=== PATIENT | female | born 1975 | race Caucasian/White ===

== ENCOUNTER 2020-01-02 14:55 | Outpatient (CLI) | payer BC ==
--- NOTE | 2020-01-02 15:28 | RAD ---
TWO VIEW ABDOMEN SUPINE AND UPRIGHT VIEWS: Indications: Crohn's disease. Abdominal pain. Dysuria. FINDINGS: Scattered gas in the colon. No significant small bowel gas. No free air. No mass effect. No abnormal calcification. There are phlebolith type calcifications in the pelvis. Osseous structures are unremar kable. IMPRESSION: Unremarkable bowel gas pattern. POS: [facility]
== END 2020-01-02 14:56 | disposition home or self-care (01) ==
LOC: BICRAD 14:55
PROVIDERS: ATTEND Physician Assistant Medical
DX: K50.90 Crohn's disease, unspecified, without complications (principal); R30.0 Dysuria; K21.9 Gastro-esophageal reflux disease without esophagitis; M06.9 Rheumatoid arthritis, unspecified; M10.9 Gout, unspecified
CPT/HCPCS: 36415; 74019; 80053; 80074; 81001; 82306; 82607; 82746; 85025; 86140; 86480; 86706

== ENCOUNTER 2020-02-23 10:51 | Outpatient (CLI) | payer BC | END 2020-02-23 10:52 | disposition home or self-care (01) | LOC: CTENTCT 10:51 | PROVIDERS: ATTEND Otolaryngology Plastic Surgery within the Head & Neck | DX: J34.2 Deviated nasal septum (principal) | CPT/HCPCS: 70486 ==

== ENCOUNTER 2024-08-19 09:50 | Inpatient (IN) | payer OTHER ==
[2024-08-19 10:55] VITALS: BMI 25.8
[2024-08-19] MEDS ORDERED: hydrALAZINE 20 MG/ML VIAL SLOW IVP PRN (11:13)
[2024-08-19] MEDS: Morphine 4 MG/ML VIAL SLOW IVP PRN (12:04)
[2024-08-19] MEDS: Lactated Ringer's 1,000 ML IV SCH ×2 (12:05)
[2024-08-19] MEDS ORDERED: LevoFLOXacin 750 mg/D5W 750 MG in Premix 1 BAG IVPB SCH (12:15)
[2024-08-19] MEDS: Scopolamine 1 mg/72 hour Patch TD SCH (12:55)
[2024-08-19] MEDS: Ondansetron PF 4 MG/2 ML Vial IVP PRN (12:57)
[2024-08-19] MEDS: metroNIDAZOLE 500 MG in Premix 1 BAG IVPB SCH (12:57)
[2024-08-19] MEDS ORDERED: METHYLPREDNISOLONE SOD SUCC IVPB SCH (13:30)
[2024-08-19] MEDS ORDERED: SODIUM CHLORIDE 0.9% IVPB SCH (13:30)
[2024-08-19] MEDS: Piperacillin/Tazobactam 3.375 GM in Sodium Chloride 0.9% 100 ML IVPB SCH ×2 (14:09→17:07)
[2024-08-19] MEDS: methylPREDNISolone Sod Succ 40 MG VIAL IVP SCH (14:09)
[2024-08-19 17:03] LABS: Hep C IgG Ab NONREACTIVE S/CO (NonReactive); Hep C Index 0.19 S/CO (0-0.79)
[2024-08-19] MEDS: Mometasone 200 MCG/Formoterol 5 MCG 120 PUFF INHALER INH SCH (18:48)
[2024-08-19] MEDS: Pantoprazole 40 MG VIAL IVP SCH (19:50)
[2024-08-19] MEDS: Enoxaparin 40 MG (0.4 mL) SYRINGE SC SCH (19:56)
[2024-08-19] MEDS: busPIRone HCl 10 MG TAB PO SCH (19:56)
[2024-08-20] MEDS: Morphine 4 MG/ML VIAL SLOW IVP SCH ×2 (01:51→05:44)
[2024-08-20 05:31] LABS: #Basophils Less than 0.03 10x3/uL (0.0-0.2); #Eosinophils Less than 0.03 10x3/uL (0.0-0.7); %Basophils 0.1 % (0.0-1.0); %Lymphocytes 11.2 % (21.0-51.0); %Monocytes 4.1 % (0.0-10.0); %Neutrophils 84.3 % (42.0-75.0); Hematocrit 39.7 % (36.0-47.0); Hemoglobin 12.7 g/dL (12.0-16.0); Mean Corpuscular Hemoglobin 29.1 pg (27.0-31.0); Mean Corpuscular Volume 90.8 fL (78.0-98.0); Mean Platelet Volume 10.7 fL (7.4-10.4); Platelet Count 268 10x3/uL (130-400); RBC Distribution Width 14.7 % (11.5-14.5); Red Blood Cell (RBC) Count 4.37 mill/uL (4.20-5.40)
[2024-08-20 05:47] LABS: ALT (SGPT) 15 U/L (8-55); AST (SGOT) 13 U/L (5-34); Albumin 2.8 g/dL (3.5-5.0); Alkaline Phosphatase 74 U/L (40-110); Anion Gap 11 mmol/L (10-20); BUN (Urea Nitrogen) 13 mg/dL (7.0-18.7); Bilirubin, Total 0.7 mg/dL (0.2-1.2); Calc. Creatinine Clearance 91 mL/min (70-130); Calcium 8.8 mg/dL (7.8-10.44); Carbon Dioxide 29 mmol/L (22-29); Chloride 101 mmol/L (98-107); Estimated GFR 78; Globulin 3.1 g/dL (2.4-3.5); Glucose 123 mg/dL (70-105); Potassium 4.7 mmol/L (3.5-5.1); Protein, Total 5.9 g/dL (6.0-8.3); Sodium 136 mmol/L (136-145)
[2024-08-20 06:09] LABS: HBSAB Concentration Less than 8.00 mIU/mL; Hep B Core Total Ab NONREACTIVE (NonReactive); Hep B Core Total Index 0.11 S/CO (0-0.79); Hep B Surf AB NONREACTIVE (NonReactive); Hep B Surf Ag NONREACTIVE S/CO (NonReactive)
[2024-08-20] MEDS: Metoprolol Tartrate 50 MG TAB PO SCH (08:44)
[2024-08-20] MEDS: Acetaminophen 500 MG TAB PO SCH (08:45)
[2024-08-20] MEDS: Morphine 4 MG/ML VIAL SLOW IVP PRN (08:48)
[2024-08-20] MEDS ORDERED: Albuterol 2.5 MG (3 mL) NEB NEB PRN (11:37)
[2024-08-20] MEDS: Ketorolac Tromethamine 30 MG (1 mL) VIAL IVP SCH (12:00)
[2024-08-20] MEDS: Dextrose 5 %-0.45 % NaCl 1,000 ML IV SCH (13:16)
[2024-08-21 05:37] LABS: #Basophils Less than 0.03 10x3/uL (0.0-0.2); #Eosinophils Less than 0.03 10x3/uL (0.0-0.7); %Basophils 0.1 % (0.0-1.0); %Monocytes 3.5 % (0.0-10.0); %Neutrophils 88.1 % (42.0-75.0); Hematocrit 41.7 % (36.0-47.0); Hemoglobin 13.2 g/dL (12.0-16.0); Mean Corpuscular HGB CONC 31.7 g/dL (32.0-36.0); Mean Corpuscular Hemoglobin 29.1 pg (27.0-31.0); Mean Corpuscular Volume 91.9 fL (78.0-98.0); Mean Platelet Volume 11.1 fL (7.4-10.4); Platelet Count 284 10x3/uL (130-400); RBC Distribution Width 14.5 % (11.5-14.5); Red Blood Cell (RBC) Count 4.54 mill/uL (4.20-5.40)
[2024-08-21 05:54] LABS: Anion Gap 11 mmol/L (10-20); BUN (Urea Nitrogen) 11 mg/dL (7.0-18.7); Calc. Creatinine Clearance 84 mL/min (70-130); Carbon Dioxide 27 mmol/L (22-29); Chloride 103 mmol/L (98-107); Estimated GFR 71; Glucose 124 mg/dL (70-105); Magnesium 2.4 mg/dL (1.6-2.6); Sodium 136 mmol/L (136-145)
[2024-08-22] MEDS ORDERED: Acetaminophen 500 MG TAB PO PRN (09:08)
[2024-08-22 14:51] VITALS: BP 124/72; TEMP 98.4
[2024-08-23] MEDS ORDERED: predniSONE 20 MG TAB PO SCH (08:00)
[2024-08-23 20:08] LABS: QuantiFERON-TB Gold Plus Negative (Negative)
== END 2024-08-22 14:45 | disposition home or self-care (01) | DRG 386 ==
LOC: SURG B 10:29
PROVIDERS: ADMIT Specialist; ATTEND Specialist
DX: K50.912 Crohn's disease, unspecified, with intestinal obstruction (principal); N17.9 Acute kidney failure, unspecified; Z79.899 Other long term (current) drug therapy; M06.9 Rheumatoid arthritis, unspecified; Z98.890 Other specified postprocedural states; I10 Essential (primary) hypertension; E86.9 Volume depletion, unspecified
CPT/HCPCS: 36415; 71046; 80048; 80053; 83735; 85025; 86480; 86704; 86706; 86803; 87340; 94664; 94760; J1885; J2272; J2405; J2470; J2543; J2919; J7042; J7120

== ENCOUNTER 2024-09-16 09:17 | Outpatient (CLI) | payer OTHER | END 2024-09-16 09:18 | disposition home or self-care (01) | LOC: BICRAD 09:17 | PROVIDERS: ATTEND Internal Medicine Gastroenterology | DX: K50.90 Crohn's disease, unspecified, without complications (principal); R10.9 Unspecified abdominal pain | CPT/HCPCS: 74019 ==

== ENCOUNTER 2024-09-16 13:09 | Inpatient (IN) | payer OTHER, BC ==
[~2024-09-16 13:09] MED LIST: Iopamidol-370 76% 500 ML MDV (1 ML CHARGE) ONE
[2024-09-16 14:25] LABS: #Basophils 0.05 10x3/uL (0.0-0.2); %Basophils 0.4 % (0.0-1.0); %Eosinophils 0.3 % (0.0-10.0); %Lymphocytes 29.5 % (21.0-51.0); %Monocytes 6.4 % (0.0-10.0); %Neutrophils 62.6 % (42.0-75.0); Hematocrit 44.1 % (36.0-47.0); Hemoglobin 14.1 g/dL (12.0-16.0); Mean Corpuscular Hemoglobin 29.8 pg (27.0-31.0); Mean Corpuscular Volume 93.2 fL (78.0-98.0); Mean Platelet Volume 9.9 fL (7.4-10.4); Platelet Count 386 10x3/uL (130-400); RBC Distribution Width 15.9 % (11.5-14.5); Red Blood Cell (RBC) Count 4.73 mill/uL (4.20-5.40)
[2024-09-16 14:40] LABS: ALT (SGPT) 17 U/L (Less than 34); AST (SGOT) 20 U/L (11-34); Albumin 3.4 g/dL (3.1-4.5); Alkaline Phosphatase 82 U/L (40-110); Anion Gap 15 mmol/L (10-20); BUN (Urea Nitrogen) 14 mg/dL (7.0-18.7); Bilirubin, Total 0.2 mg/dL (0.3-1.2); Calc. Creatinine Clearance 0 mL/min (70-130); Calcium 9.1 mg/dL (7.8-10.44); Carbon Dioxide 24 mmol/L (22-29); Chloride 104 mmol/L (98-107); Estimated GFR 62; Globulin 3.1 g/dL (2.4-3.5); Glucose 92 mg/dL (70-105); Lipase 8 U/L (8-78); Potassium 3.4 mmol/L (3.5-5.1); Protein, Total 6.5 g/dL (6.0-8.3); Sodium 140 mmol/L (136-145)
[2024-09-16] MEDS ORDERED: Morphine 4 MG/ML VIAL ONE ×2 (15:02→16:48)
[2024-09-16] MEDS ORDERED: Ondansetron PF 4 MG/2 ML Vial ONE (15:02)
[2024-09-16] MEDS ORDERED: Ondansetron PF 4 MG/2 ML Vial IVP PRN (16:41)
[2024-09-16] MEDS ORDERED: Acetaminophen 325 MG TAB PO PRN (16:41)
[2024-09-16] MEDS ORDERED: LevoFLOXacin 500 mg/D5W 500 MG in Premix 1 BAG IVPB SCH (17:00)
[2024-09-16] MEDS ORDERED: hydrALAZINE 20 MG/ML VIAL SLOW IVP PRN (17:59)
[2024-09-16] MEDS: Sodium Chloride 0.9% 1,000 ML IV SCH (18:03)
[2024-09-16 19:07] VITALS: BMI 25.4
[2024-09-16] MEDS: Piperacillin/Tazobactam 3.375 GM in Sodium Chloride 0.9% 100 ML IVPB SCH ×3 (20:09→23:47)
[2024-09-16] MEDS: Ketorolac Tromethamine 30 MG (1 mL) VIAL IVP SCH (20:22)
[2024-09-16] MEDS ORDERED: Famotidine/PF 20 mg/2ml Vial SLOW IVP SCH (21:00)
[2024-09-16] MEDS: methylPREDNISolone Sod Succ 40 MG VIAL IVP SCH (21:31)
[2024-09-16] MEDS ORDERED: metroNIDAZOLE 500 MG in Premix 1 BAG IVPB SCH (22:00)
[2024-09-16] MEDS: Morphine 2 MG/ML VIAL SLOW IVP PRN (22:03)
[2024-09-17 04:57] LABS: #Basophils Less than 0.03 10x3/uL (0.0-0.2); #Eosinophils Less than 0.03 10x3/uL (0.0-0.7); %Basophils 0.2 % (0.0-1.0); %Lymphocytes 11.1 % (21.0-51.0); %Monocytes 1.8 % (0.0-10.0); %Neutrophils 86.2 % (42.0-75.0); Hematocrit 39.1 % (36.0-47.0); Hemoglobin 12.8 g/dL (12.0-16.0); Mean Corpuscular HGB CONC 32.7 g/dL (32.0-36.0); Mean Corpuscular Hemoglobin 30.1 pg (27.0-31.0); Mean Platelet Volume 10.4 fL (7.4-10.4); Platelet Count 318 10x3/uL (130-400); RBC Distribution Width 16.1 % (11.5-14.5); Red Blood Cell (RBC) Count 4.25 mill/uL (4.20-5.40)
[2024-09-17 05:16] LABS: ALT (SGPT) 14 U/L (Less than 34); AST (SGOT) 14 U/L (11-34); Albumin 2.8 g/dL (3.1-4.5); Alkaline Phosphatase 75 U/L (40-110); Anion Gap 15 mmol/L (10-20); BUN (Urea Nitrogen) 11 mg/dL (7.0-18.7); Bilirubin, Total 0.3 mg/dL (0.3-1.2); Calc. Creatinine Clearance 76 mL/min (70-130); Calcium 8.3 mg/dL (7.8-10.44); Carbon Dioxide 25 mmol/L (22-29); Chloride 106 mmol/L (98-107); Estimated GFR 64; Globulin 2.5 g/dL (2.4-3.5); Glucose 104 mg/dL (70-105); Protein, Total 5.3 g/dL (6.0-8.3); Sodium 142 mmol/L (136-145)
[2024-09-17] MEDS: Pantoprazole 40 MG VIAL IVP SCH (08:46)
[2024-09-17] MEDS: Enoxaparin 40 MG (0.4 mL) SYRINGE SC SCH (08:46)
[2024-09-17] MEDS: Morphine 2 MG/ML VIAL SLOW IVP SCH (22:34)
[2024-09-18] MEDS: Morphine 2 MG/ML VIAL SLOW IVP PRN (11:53)
[2024-09-18] MEDS: GoLYTELY 4,000 ml Bottle PO SCH (14:13)
[2024-09-18] MEDS: Lorazepam 2 MG/ML VIAL SLOW IVP SCH (15:51)
[2024-09-19] MEDS ORDERED: PROPOFOL 40 ML ONE (08:24)
[2024-09-19] MEDS ORDERED: PROPOFOL 200 MG/20 ML VIAL ONE (11:30)
[2024-09-19] MEDS ORDERED: SUCCINYLCHOLINE/SOD CL,ISO/PF 200 MG/10 ML SYRINGE FS ONE (11:30)
[2024-09-19] MEDS ORDERED: fentaNYL 50 mcg/mL 1 mL Vial ONE ×2 (11:38→12:18)
[2024-09-19] MEDS ORDERED: Ondansetron PF 4 MG/2 ML Vial ONE (11:47)
[2024-09-19] MEDS ORDERED: Dexamethasone 20 MG/5 ML VIAL ONE (11:47)
[2024-09-19] MEDS: Metoprolol Tartrate 25 MG TAB PO SCH (14:59)
[2024-09-19] MEDS: busPIRone HCl 10 MG TAB PO SCH (20:46)
[2024-09-20] MEDS: Metoprolol Succinate XL 50 MG ER.TAB PO SCH (08:25)
[2024-09-20] MEDS ORDERED: Metoprolol Succinate XL 25 MG ER.TAB PO SCH (09:00)
[2024-09-20] MEDS: Lorazepam 2 MG/ML VIAL SLOW IVP PRN (10:02)
[2024-09-20] MEDS ORDERED: fentaNYL PF 100 MCG/2 ML SYRINGE ONE ×2 (14:31→16:02)
[2024-09-20] MEDS ORDERED: PROPOFOL 20 ML ONE (14:32)
[2024-09-20] MEDS ORDERED: Lidocaine 2% PF 5 ML VIAL ONE (14:32)
[2024-09-20] MEDS ORDERED: Rocuronium Bromide 10 MG/ML (10ML VIAL) ONE (14:33)
[2024-09-20] MEDS ORDERED: cefOXitin 2 GM VIAL ONE (14:36)
[2024-09-20] MEDS ORDERED: Bupivacaine 0.25% HCL 30 ML VIAL ONE (14:56)
[2024-09-20] MEDS ORDERED: EPINEPHrine 1 MG/ML VIAL ONE (14:56)
[2024-09-20] MEDS ORDERED: Dexamethasone 20 MG/5 ML VIAL ONE (15:02)
[2024-09-20] MEDS ORDERED: Ondansetron PF 4 MG/2 ML Vial ONE (15:02)
[2024-09-20] MEDS ORDERED: Ketorolac Tromethamine 30 MG (1 mL) VIAL ONE (15:02)
[2024-09-20] MEDS ORDERED: SUGAMMADEX SODIUM 200 MG/2 ML VIAL ONE (15:24)
[2024-09-20] MEDS ORDERED: diphenhydrAMINE 50 MG/ML VIAL ONE (15:24)
[2024-09-20] MEDS ORDERED: Ondansetron PF 4 MG/2 ML Vial IVP PRN ×2 (16:13→16:26)
[2024-09-20] MEDS ORDERED: Ondansetron HCl/PF 4 MG/2 ML Vial IVP PRN (16:13)
[2024-09-20] MEDS ORDERED: HYDROmorphone 2 MG/ML VIAL SLOW IVP PRN (16:13)
[2024-09-20] MEDS ORDERED: Naloxone HCl 0.4 mg/ml Vial IV PRN (16:13)
[2024-09-20] MEDS ORDERED: diphenhydrAMINE 50 MG/ML VIAL IM PRN (16:13)
[2024-09-20] MEDS ORDERED: diphenhydrAMINE 25 MG CAP PO PRN (16:13)
[2024-09-20] MEDS ORDERED: HYDROmorphone/PF 10 MG in Sodium Chloride 0.9% 99 ML IV PRN (16:13)
[2024-09-20] MEDS ORDERED: diphenhydrAMINE 50 MG/ML VIAL IVP PRN (16:13)
[2024-09-20] MEDS ORDERED: Promethazine HCl 25 MG/ML VIAL IM PRN ×3 (16:13→16:26)
[2024-09-20] MEDS ORDERED: Communication Order-Pharmacy FS SCH (16:15)
[2024-09-20] MEDS ORDERED: hydrALAZINE 20 MG/ML VIAL SLOW IVP PRN (16:26)
[2024-09-20] MEDS ORDERED: Ipratropium/Albuterol 3 ML NEB NEB PRN (16:26)
[2024-09-20] MEDS ORDERED: HYDROmorphone 0.5 MG/0.5 ML SYRINGE ONE ×2 (16:34→16:47)
[2024-09-20] MEDS: D5 1/2 NS w/20 mEq KCL 1,000 ML IV SCH ×2 (18:39→19:02)
[2024-09-20] MEDS: Mometasone 200 MCG/Formoterol 5 MCG 120 PUFF INHALER INH SCH (19:06)
[2024-09-20] MEDS: Acetaminophen 500 MG TAB PO SCH (21:03)
[2024-09-20] MEDS: Famotidine/PF 20 mg/2ml Vial SLOW IVP SCH (21:03)
[2024-09-20] MEDS: Famotidine 20 MG TAB PO SCH (21:04)
[2024-09-20] MEDS: cefOXitin Sodium 1 GM in Sodium Chloride 0.9% 100 ML IVPB SCH (21:07)
[2024-09-21 04:45] LABS: #Basophils Less than 0.03 10x3/uL (0.0-0.2); #Eosinophils Less than 0.03 10x3/uL (0.0-0.7); %Basophils 0.1 % (0.0-1.0); %Lymphocytes 11.1 % (21.0-51.0); %Neutrophils 81.4 % (42.0-75.0); Hemoglobin 13.2 g/dL (12.0-16.0); Mean Corpuscular Volume 90.9 fL (78.0-98.0); Mean Platelet Volume 9.8 fL (7.4-10.4); Platelet Count 313 10x3/uL (130-400); RBC Distribution Width 15.7 % (11.5-14.5)
[2024-09-21 05:04] LABS: Anion Gap 12 mmol/L (10-20); BUN (Urea Nitrogen) 12 mg/dL (7.0-18.7); Calc. Creatinine Clearance 90 mL/min (70-130); Calcium 8.3 mg/dL (7.8-10.44); Carbon Dioxide 25 mmol/L (22-29); Chloride 103 mmol/L (98-107); Estimated GFR 79; Glucose 137 mg/dL (70-105); Potassium 4.2 mmol/L (3.5-5.1); Sodium 136 mmol/L (136-145)
[2024-09-21] MEDS: Enoxaparin 40 MG (0.4 mL) SYRINGE SC SCH (08:06)
[2024-09-21] MEDS: Metoprolol Tartrate 50 MG TAB PO SCH (08:06)
[2024-09-21] MEDS: D5 1/2 NS w/20 mEq KCL 1,000 ML IV SCH (13:32)
[2024-09-21] MEDS: Morphine 2 MG/ML VIAL SLOW IVP PRN (13:32)
[2024-09-21] MEDS: traMADol HCl 50 MG TAB PO PRN (15:24)
[2024-09-21] MEDS: Ketorolac Tromethamine 30 MG (1 mL) VIAL IVP PRN (19:56)
[2024-09-22 08:10] LABS: #Basophils 0.03 10x3/uL (0.0-0.2); %Basophils 0.2 % (0.0-1.0); %Eosinophils 0.6 % (0.0-10.0); %Lymphocytes 17.6 % (21.0-51.0); %Monocytes 6.6 % (0.0-10.0); %Neutrophils 74.4 % (42.0-75.0); Hematocrit 41.2 % (36.0-47.0); Hemoglobin 12.8 g/dL (12.0-16.0); Mean Corpuscular HGB CONC 31.1 g/dL (32.0-36.0); Mean Corpuscular Hemoglobin 29.6 pg (27.0-31.0); Mean Corpuscular Volume 95.4 fL (78.0-98.0); Mean Platelet Volume 10.4 fL (7.4-10.4); Platelet Count 225 10x3/uL (130-400); RBC Distribution Width 15.9 % (11.5-14.5); Red Blood Cell (RBC) Count 4.32 mill/uL (4.20-5.40)
[2024-09-22 08:34] LABS: ALT (SGPT) 18 U/L (Less than 34); AST (SGOT) 27 U/L (11-34); Albumin 2.4 g/dL (3.1-4.5); Alkaline Phosphatase 71 U/L (40-110); Anion Gap 13 mmol/L (10-20); BUN (Urea Nitrogen) 8 mg/dL (7.0-18.7); Bilirubin, Total 0.4 mg/dL (0.3-1.2); Calc. Creatinine Clearance 80 mL/min (70-130); Calcium 8.5 mg/dL (7.8-10.44); Carbon Dioxide 23 mmol/L (22-29); Chloride 107 mmol/L (98-107); Estimated GFR 68; Globulin 3.1 g/dL (2.4-3.5); Glucose 82 mg/dL (70-105); Potassium 4.3 mmol/L (3.5-5.1); Protein, Total 5.5 g/dL (6.0-8.3); Sodium 139 mmol/L (136-145)
[2024-09-23 13:14] VITALS: BMI 25.4
[2024-09-24 07:51] VITALS: BP 129/79; TEMP 99.7
[2024-09-24] MEDS: Diphenoxylate HCl/Atropine Tablet PO SCH (10:14)
== END 2024-09-24 13:48 | disposition home or self-care (01) | DRG 330 ==
LOC: ERS 13:09 → MSONC 17:58 → OBSVTOIN 17:58
PROVIDERS: ADMIT Internal Medicine; ATTEND Internal Medicine
PROC: 0DBE0ZZ Excision of Large Intestine, Open Approach (ICD-10-PCS; principal; 2024-09-20)
PROC: 0DBC8ZX Excision of Ileocecal Valve, Via Natural or Artificial Opening Endoscopic, Diagnostic (ICD-10-PCS; 2024-09-20)
DX: C18.9 Malignant neoplasm of colon, unspecified (principal); K50.90 Crohn's disease, unspecified, without complications; M06.9 Rheumatoid arthritis, unspecified; I10 Essential (primary) hypertension; F90.9 Attention-deficit hyperactivity disorder, unspecified type; F41.9 Anxiety disorder, unspecified; R19.09 Other intra-abdominal and pelvic swelling, mass and lump; Z88.1 Allergy status to other antibiotic agents; Z90.49 Acquired absence of other specified parts of digestive tract; R10.9 Unspecified abdominal pain
CPT/HCPCS: 36415; 74019; 74177; 80048; 80053; 83605; 83690; 85025; 88305; 88309; 88341; 88342; 94664; 96374; 96375; 96376; 97139; A4314; A4333; A4649; C1776; J0171; J0665; J0694; J1100; J1171; J1200; J1885; J2060; J2270; J2272; J2405; J2470; J2543; J2704; J2919; J3010; J3480; J3490; J7030; J7042; Q9967